=== PATIENT | female | born 1950 ===

== ENCOUNTER 2017-03-31 21:44 | Emergency (ER) | payer MEDICARE, OTHER ==
[2017-03-31 21:44] VITALS: BMI 25.0
[2017-03-31 21:59] VITALS: RESP 18
--- NOTE | 2017-03-31 23:24 | C.PDOC ---
History Of Present Illness Pt is anxious about her , so she checked her BP at home and it was elevated. Time Seen by Provider: 03/31/17 22:55 Chief Complaint (Nursing): High Blood Pressure History Per: Patient Onset/Duration Of Symptoms: Other (tonight) Current Symptoms Are (Timing): Still Present Associated Symptoms: Other (Anxiety) Quality Of Symptoms: Asymptomatic Severity: Moderate Exacerbating Factor(s): Pos: Other Additional History Per: Prior Records Past Medical History Reviewed: Historical Data, Nursing Documentation, Vital Signs Vital Signs: Last Vital Signs Temp 97.7 F 03/31/17 21:56 Pulse 115 H 03/31/17 21:56 Resp 18 03/31/17 21:56 BP 148/84 03/31/17 23:15 Pulse Ox 98 03/31/17 21:56 - Medical History PMH: Diabetes, HTN, Hypercholesterolemia, Rheumatoid Arthritis Other PMH: Psoriasis - [facility] Procedures OCCUPATIONAL THERAPY (01/01/15) OTHER SPEECH THERAPY (01/16/15) PHYSICAL THERAPY NEC (01/16/15) Family History: States: Unknown Family Hx - Social History Hx Tobacco Use: No Hx Alcohol Use: No Hx Substance Use: No - Immunization History Hx Tetanus Toxoid Vaccination: No Hx Influenza Vaccination: No Hx Pneumococcal Vaccination: No Review Of Systems Except As Marked, All Systems Reviewed And Found Negative. Constitutional: Negative for: Fever, Weakness Cardiovascular: Negative for: Chest Pain Respiratory: Negative for: Shortness of Breath Gastrointestinal: Negative for: Vomiting, Abdominal Pain Musculoskeletal: Negative for: Neck Pain Neurological: Negative for: Weakness, Numbness, Seizures, Altered Mental Status Physical Exam - Physical Exam Appears: Non-toxic, No Acute Distress Skin: Warm, Dry, Rash (psoriasis) Head: Atraumatic, Normacephalic Eye(s): bilateral: PERRL, EOMI Neck: Normal ROM, Supple Cardiovascular: Rhythm Regular Respiratory: Normal Breath Sounds, No Accessory Muscle Use Gastrointestinal/Abdominal: Soft, No Tenderness Back: No CVA Tenderness Extremity: Normal ROM, No Pedal Edema Neurological/Psych: Oriented x3, Normal Motor, Normal Sensation ED Course And Treatment O2 Sat by Pulse Oximetry: 98 Pulse Ox Interpretation: Normal Reassessment Condition: Improved Medical Decision Making Medical Decision Making: Will increase the Norvasc from 5mg to 10mg daily. Disposition Counseled Patient/Family Regarding: Diagnosis, Need For Followup, Rx Given - Disposition Referrals: Marshal Martinez MD [Staff Provider] - Disposition: HOME/ ROUTINE Disposition Time: 23:28 Condition: IMPROVED Additional Instructions: Follow up with your doctor within 1 week for further evaluation and treatment. Return to the ER if you develop weakness, numbness, chest pain, shortness of breath, worsening of symptoms or if you have any other concerns. Prescriptions: amLODIPine [Norvasc] 10 mg PO DAILY #30 tab Instructions: Hypertension (ED) - Clinical Impression Clinical Impression: Hypertension
[2017-03-31 23:40] VITALS: BP 140/72; PULSE 86; TEMP 97.6; O2SAT 99
== END 2017-03-31 23:44 | disposition home or self-care (01) ==
LOC: C.ER 21:44
DX: I10 Essential (primary) hypertension (principal); E11.9 Type 2 diabetes mellitus without complications; E78.00 Pure hypercholesterolemia, unspecified; M06.9 Rheumatoid arthritis, unspecified